=== PATIENT | male | born 1975 | race Caucasian/White ===

== ENCOUNTER 2020-01-20 10:14 | Outpatient (REF) | payer OTHER, SELFPAY | END 2020-01-20 10:15 | disposition home or self-care (01) | LOC: HO.WFDLDS 10:14 | PROVIDERS: PCP Nurse Practitioner Community Health; Visit Provider Internal Medicine | DX: Z20.828 Contact with and (suspected) exposure to other viral communicable diseases (principal) | CPT/HCPCS: 87635 ==